=== PATIENT | female | born 1940 | race Caucasian/White ===

== ENCOUNTER 2021-05-18 16:27 | Outpatient (CLI) | payer MEDICARE, OTHER, SELFPAY ==
--- NOTE | ~2021-05-18 | US_ITS ---
US renal BI 05/18/2021 16:56 Procedure: Realtime transabdominal ultrasound of the kidneys and bladder. Indication: Chronic kidney disease stage IV Comparison: No prior studies for comparison. Findings: Renal echotexture is normal bilaterally without hydronephrosis, contour deforming mass or r enal calculus. The right kidney measures 8 cm and left kidney measures 7.9 cm. Bladder not well dist ended for evaluation of wall thickening. Impression: 1: Unremarkable renal ultrasound. No stones, masses or hydronephrosis. Reviewed, dictated and finalized at location A. Impression: 1: Unremarkable renal ultrasound. No stones, masses or hydronephrosis.
== END 2021-05-18 16:28 | disposition home or self-care (01) ==
PROVIDERS: PCP Emergency Medicine; Visit Provider Internal Medicine Nephrology
DX: I12.9 Hypertensive chronic kidney disease with stage 1 through stage 4 chronic kidney disease, or unspecified chronic kidney disease (principal); N18.4 Chronic kidney disease, stage 4 (severe)
CPT/HCPCS: 76775

== ENCOUNTER → 2022-07-26 14:54 | Outpatient (CLI) | payer MEDICARE, OTHER, SELFPAY ==
--- NOTE | ~2022-07-26 | MM_ITS ---
EXAMINATION: MM screening [facility] BI w [facility] HISTORY: Screening TECHNIQUE: Craniocaudal and mediolateral oblique 3-D tomosynthesis images were obtained and synthetic 2-D images were generated. CAD analysis was submitted and interpreted. COMPARISON: Comparison to multiple prior studies sequentially, with oldest reviewed study dated 06/11. BREAST PARENCHYMAL COMPOSITION: The breasts are almost entirely fatty. FINDINGS: There are benign breast calcifications. There is no evidence of suspicious mass, calcificat ion, or architectural distortion to suggest malignancy in either breast. There has been no suspicious interval change. IMPRESSION: 1. No mammographic evidence of malignancy. 2. Recommend routine screening mammography in one year. BI-RADS Category 2: Benign finding(s). Reviewed, dictated and finalized at location A. ARCH AND DEVELOPMENT MANAGER
--- NOTE | ~2022-07-26 | DEXA_ITS ---
Bone Density Report Name: KARIME KHAN Age: 82 Sex: Female Ethnicity: White Date of : 1940 Indication: osteopenia; height loss; hysterectomy;postmenopausal Referring Provider: JESUS ALBERTO MARTINEZ Study: Bone densitometry was performed. Exam Date: July 26, 2022 Accession number: [id number] Bone Density: Region BMD T-score Z-score Classification AP Spine (L1-L4) 1.234 1.7 4.5 Normal Femoral Neck (Left) 0.609 -2.2 0.2 Osteopenia Total Hip (Left) 0.765 -1.4 0.7 Osteopenia Femoral Neck (Right) 0.592 -2.3 0.1 Osteopenia Total Hip (Right) 0.761 -1.5 0.7 Osteopenia Total Hip Mean 0.763 -1.5 0.7 Osteopenia World Health Organization criteria for BMD impression classify patients as: Normal (T-score at or above -1.0), Osteopenia (T-score between -1.0 and -2.5), or Osteoporosis (T-score at or below -2.5). 10-year Fracture Risk(1): Major Osteoporotic Fracture 17% Hip Fracture 5.7% Reported Risk Factors: [place] (), Neck BMD=0.592, BMI=26.3 (1) FRAX(R) Version 3.08. Fracture probability calculated for an untreated patient. Fracture probability may be lower if the patient has received treatment. Previous Exams: Region Exam Age BMD T-score BMD Change BMD Change Date g/cm2 vs Baseline vs Previous AP Spine(L1-L4) 07/26/2022 82 1.234 1.7 0.108* 0.108* 07/07/2014 74 1.126 0.7 Total Hip(Left) 07/26/2022 82 0.765 -1.4 0.002 0.002 07/07/2014 74 0.763 -1.5 Total Hip(Right) 07/26/2022 82 0.761 -1.5 -0.064* -0.064* 07/07/2014 74 0.825 -1.0 *Denotes significance at 95% confidence level, LSC for AP Spine = 0.022 g/cm2, LSC for Total Hip = 0.027 g/cm2 Clinical Information Provided by Patient: Has used the following medications: Vitamin D, Calcium, MTV, ARMOUR THYROID Has the following medical conditions: Hysterectomy Patient maximum height was 64.0 Menopause Age: 43 No regular weight bearing exercise Drinks caffeinated beverages Onset of menses at age 12 Number of children 3 Impression: The patient has low bone mass, based on the Right Femoral Neck T-score. The patient has an estimated ten-year risk of hip fracture of 5.7% and an estimated ten-year risk of major fracture of 17%, based on the WHO FRAX algorithm. The BMD for the Total Hip(Right) decreased, changing by -0.064 since the last DXA exam. Discussion: BONE DENSITY IS LOW AT ONE OR MORE SKELETAL SITES
== END ==
PROVIDERS: PCP Emergency Medicine; Visit Provider Emergency Medicine
DX: Z12.31 Encounter for screening mammogram for malignant neoplasm of breast (principal); Z78.0 Asymptomatic menopausal state; M85.852 Other specified disorders of bone density and structure, left thigh; M85.851 Other specified disorders of bone density and structure, right thigh
CPT/HCPCS: 77063; 77067; 77080

== ENCOUNTER 2025-04-15 09:53 | Emergency (ER) | payer MEDICARE, SELFPAY ==
[2025-04-15 10:00] VITALS: BP 175/40; PULSE 51; RESP 20; TEMP 36.2; O2SAT 97
--- NOTE | 2025-04-15 10:18 | ED_ITS ---
HPI - Extremity Injury (Lower) General Chief Complaint: Extremity Injury, Lower Stated Complaint: LT Foot Toe Pain Time Seen by Provider: 04/15/25 09:55 Source: patient Mode of arrival: ambulatory Limitations: no limitations History of Present Illness HPI Narrative: Patient is an 84-year-old female who presents with left 2nd digit toe pain for 4-5 days. Patient has tried soaking foot and taking aspirin with no relief. Denies any fever, chills, nausea, vomiting, diarrhea. Related Data Allergies Allergy/AdvReac Type Severity Reaction Status Date / Time levothyroxine sodium AdvReac Severe BLOATING, Verified 04/15/25 10:19 NAUSEA Review of Systems Review of Systems: All systems reviewed & are unremarkable except as noted in HPI and below Constitutional: Constitutional: Denies body ache(s), Denies chills, Denies fatigue, Denies fever(s), Denies headache(s), Denies malaise and Denies weakness Eyes: Eyes: Denies blurry vision, Denies irritation and Denies loss of vision ENT: Denies otalgia, Denies headache(s), Denies nasal discharge, Denies sinus pain and Denies sore throat Cardiovascular: Cardiovascular: Denies chest pain, Denies irregular heart rhythm and Denies dyspnea Respiratory: Respiratory: Denies dyspnea Gastrointestinal: Gastrointestinal: Denies abdominal pain, Denies melena, Denies hematochezia, Denies diarrhea, Denies nausea and Denies vomiting Musculoskeletal: Musculoskeletal: Denies back pain, Denies myalgias, Reports arthralgias and Reports joint swelling Integumentary/Breasts: Skin/Breast: Denies pruritus, Reports erythema and Denies rash Neurologic: Denies headache(s), Denies loss of vision and Denies weakness Psychiatric: Psychiatric: Reports no additional psychiatric complaints Endocrine: Endocrine: Denies fatigue PMFSH Past Medical History Medical History Bradycardia Hyperlipidemia, unspecified Gastro-esophageal reflux disease without esophagitis CKD (chronic kidney disease) stage 3, GFR 30-59 ml/min Hypothyroidism (acquired) Hyperglycemia HTN (hypertension) Surgical History Surgical History H/O: hysterectomy History of appendectomy Family History Family History Father Patient's father is , Onset Age: 94 Mother No problems noted. 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 Gender identity (if verbalized by the patient): Female Comments At time of signature, agree with nursing past medical, surgical, social and family history. There is no relevant family history pertinent to the presenting complaint. Exam Const: General: cooperative, healthy appearing, comfortable, no acute distress and well nourished Nutritional Appearance: well nourished Orientation/consciousness: patient oriented x3 Limitations: no limitations HENMT: Head: normal to inspection, normocephalic and atraumatic Ears: hearing grossly normal bilaterally and external ears normal Face/Nose/Sinus: Normal external nose present, normal facial exam and face symmetric Face and sinus: normal facial exam and face symmetric Mouth: Yes lip normal Eyes: General: appearance normal, both eyes and all related structures Alignment and Position: alignment normal and position normal Periorbital: periorbital findings normal Eyelids: eyelids normal Pupils: Equal, round and reactive pupils present EOM: EOMs intact bilaterally Neck: Neck: normal visual inspection, full ROM and supple Chest: Chest palpation & inspection: normal inspection of the chest Resp: Effort & Inspection: normal respiratory effort and able to speak in complete sentences Auscultation: clear to auscultation bilaterally Cardio: Rate: regular rate Rhythm: regular rhythm Heart sounds: S1 normal heart sound present and S2 normal heart sound present GI: Inspection: normal to inspection Skin: General skin exam: normal color and no rashes or lesions noted Neuro: General: patient oriented x3 and moves all extremities Cranial nerves: Yes Equal, round and reactive pupils present Speech: normal speech Gait exam (Neuro): Normal gait present Extrem: General: normal to inspection, full ROM and no edema Left lower extremity: ankle Details: normal to inspection and normal ROM; no tenderness, no swelling and achilles tendon exam normal and foot Details: normal capillary refill, tenderness Location: of another digit Location: the 2nd digit and at the DIP joint, toes with normal ROM, warmth Location: of another digit Location: the 2nd digit and at the DIP joint (mild with erythema), vascular exam Details: dorsalis pedis pulse present and normal capillary refill and tendon exam active flexion normal; no ecchymosis Psych: Appearance: grossly normal and well kempt Mental Status: mental status grossly normal Speech and movement: Normal speech and movement present Affect: normal affect Attitude: cooperative Thought process: Normal thought process present Course Course Emergency Course: Patient is aware of diagnosis, understands and agrees to treatment plan. Anticipatory guidance given. Patient agrees to follow-up as directed and is aware of reasons to seek care at the emergency department. Portions of this record may have been created with voice recognition software Level of Care: Express Care Visit Vital Signs Vital signs: Vital Signs Temperature 36.2 C L 04/15/25 10:00 Pulse Rate 51 L 04/15/25 10:00 Respiratory Rate 20 04/15/25 10:00 Blood Pressure 175/40 H 04/15/25 10:00 Pulse Oximetry 97 04/15/25 10:00 Oxygen Delivery Room Air 04/15/25 10:00 Temperature 36.2 C L 04/15/25 10:00 Pulse Rate 51 L 04/15/25 10:00 Respiratory Rate 20 04/15/25 10:00 Blood Pressure 138/43 L 04/15/25 10:40 Pulse Oximetry 97 04/15/25 10:00 Oxygen Delivery Room Air 04/15/25 10:00 Reviewed MDM - Extremity Injury (Lower) MDM Narrative Medical decision making narrative: Patient has a history of gout and denies any diet changes. Based on exam point tenderness on 2nd DIP joint on left toe will treat for gout and also cover with antibiotics as it could be cellulitis Pt well hydrated appearing, in no respiratory distress, hemodynamically stable. Recommend supportive care. The patient is stable at time of discharge the clinical impression was discussed and the patient was given the opportunity to ask questions, which were addressed as completely as possible given the information available at present. Anticipatory guidance and return to care precautions were discussed and the importance of primary care follow-up was stressed and encouraged. The patient voiced understanding of the plan, indications to return, and the need for follow-up. Exam findings show no acute concerns or changes Patient is appropriate for outpatient treatment and follow-up. Differential Diagnosis Differential diagnosis: Likely other (Gout, cellulitis, arthritis) Medical Records Attestation: I reviewed the patient's medical records. Discharge Plan Discharge Clinical Impression: Erythema of toe Pain in toe Qualifiers: Laterality: left Qualified Code(s): M79.675 - Pain in left toe(s) Patient Disposition: Home Condition: Stable Instructions: Cellulitis (ED), Gout (ED) Additional Instructions: Take colchicine 1.2 and then 0.6 mg an hour later. Take indomethacin 3 times a day for 7 days Take antibiotics as prescribed Minimize activities that aggravate the condition The RICE protocol. Follow the RICE protocol as soon as possible after your injury: Rest your ankle by not walking on it. Ice should be immediately applied to keep the swelling down. It can be used for 20 to 30 minutes, three or four times daily. Do not apply ice directly to your skin. Compression dressings, bandages or doreen-wraps will immobilize and support your injured ankle. Elevate your ankle above the level of your heart as often as possible during the first 48 hours. Please schedule a follow-up visit with your personal physician for further evaluation and treatment within 1week OR If your symptoms persist, change or worsen significantly before you can contact your personal physician then please, without delay, go to the emergency department for further evaluation. Patient Language: Slovak Prescriptions: New cephalexin 500 mg capsule 500 mg PO QID 7 Days Qty: 28 0RF indomethacin 50 mg capsule 50 mg PO TID 7 Days Qty: 21 0RF Rx Instructions: administer with food or milk colchicine 0.6 mg capsule 0.6 mg PO DAILY Qty: 3 0RF Rx Instructions: Take two capsules initially and then one tablet an hour later No Action triamcinolone acetonide 0.1 % ointment See Rx Instructions .ROUTE .COMPLEX Qty: 80 0RF Rx Instructions: Apply a thin layer to eyelids once daily for 7 days; alendronate 70 mg tablet See Rx Instructions .ROUTE .COMPLEX Qty: 12 3RF Dose Instruction: TAKE 1 TABLET WEEKLY Rx Instructions: TAKE 1 TABLET WEEKLY thyroid (pork) [CREDIT DEPARTMENT MANAGER Thyroid] 90 mg tablet 90 mg PO DAILY Qty: 90 2RF atorvastatin 10 mg tablet See Rx Instructions .ROUTE .COMPLEX Qty: 90 3RF Dose Instruction: TAKE 1 TABLET DAILY Rx Instructions: TAKE 1 TABLET DAILY spironolactone 50 mg tablet See Rx Instructions .ROUTE .COMPLEX Qty: 90 3RF Dose Instruction: TAKE 1 TABLET DAILY Rx Instructions: TAKE 1 TABLET DAILY atenolol-chlorthalidone 50-25 mg tablet See Rx Instructions .ROUTE .COMPLEX Qty: 90 3RF Dose Instruction: TAKE 1 TABLET DAILY Rx Instructions: TAKE 1 TABLET DAILY Follow-up/Referrals: Babatunde Robin MD [Primary Care Provider] - 3 Days Time of Disposition: 10:33
--- OUTSIDE RECORDS SUMMARY | 2025-04-15 10:21 | XMS_ITS | Clinical Summary ---
Author Organization [facility] Address [address] [address] Phone Care Team Providers Care Chemical Treatment Plant Technician Name Role Phone Babatunde Robin MD Primary Care Provider [phone] Allergies Active Allergy Reactions Criticality Noted Date Comments Levothyroxine nausea 04/27/2021 Medications atenolol-chlort halidone (TENORETIC) 100-25 MG per tablet atenolol 100 mg-chlorthalidone 25 mg tablet Active atorvastatin (LIPITOR) 10 MG tablet 04/17/20 21 Active cyclobenzaprine (FLEXERIL) 5 MG tablet cyclobenzaprine 5 mg tablet Active HYDROcodone-doreen taminophen (NORCO) 5-325 MG per tablet hydrocodone 5 mg-acetaminophen 325 mg tablet Active ondansetron ODT (ZOFRAN-ODT) 4 MG dispersible tablet ondansetron 4 mg disintegrating tablet Active pantoprazole (PROTONIX) 40 MG EC tablet 04/17/20 21 Active spironolactone (ALDACTONE) 50 MG tablet 04/17/20 21 Active [place] Thyroid 90 MG tablet 04/17/20 21 Active triamcinolone (KENALOG) 0.1 % ointment APPLY A THIN LAYER TO EYELIDS ONCE DAILY FOR 7 DAYS. 02/09/20 21 Active Active Problems Problem Noted Date Diagnosed Date Disorder of thyroid gland 04/27/2021 Sprain of foot 07/16/2019 Sprain of right ankle 07/16/2019 Ankle pain 07/01/2019 Closed fracture of calcaneus 07/01/2019 Contusion of right foot 07/01/2019 Immunizations Immunization Administration Dates Next Due Sars-cov-2, Unspecified 12/21/2020 Family History Medical History Relation Comments Chronic kidney disease Neg Hx Nephrolithiasis Neg Hx Social History Tobacco Use Types Packs/Day Years Used Date Smoking Tobacco: Never Smokeless Tobacco: Never Alcohol Use Standard Drinks/Week Comments Yes 0 (1 standard drink = 0.6 oz pur e alcohol) Comments Unknown Sex and Gender Information Value Date Recorded Sex Assigned at Not on file Legal Sex Female 9:31 AM MDT Gender Identity Not on file Sexual Orientation Not on file Last Filed Vital Signs Vital Sign Reading Time Taken Comments Blood Pressure 134/76 05/03/2022 12:00 PM CDT Pulse - - Temperature 36.1 C (96.9 F) 05/03/2022 12:00 PM CDT Respiratory Rate 18 05/03/2022 12:00 PM CDT Oxygen Saturation - - Inhaled Oxygen Concentration - - Weight 68.5 kg (151 lb) 05/03/2022 12:00 PM CDT Height 162.6 cm (5' 4) 05/03/2022 12:00 PM CDT Body Mass Index 25.92 05/03/2022 12:00 PM CDT Plan of Treatment Health Maintenance Due Date Last Done Comments Pneumococcal PPSV23/PCV13 65 + Years / Low and Medium Risk (1 of 2 - PCV) 1990 Influenza Vaccine (#1) 2025 Insurance MEDICARE [employer] MEDICARE SUPPLEMENT Care Teams Chemical Treatment Plant Technician Relationship Specialty Start Date End Date Babatunde Robin MD [address] [id number] PCP - General Internal Medicine 02/09/21
[2025-04-15 10:40] VITALS: BP 138/43
== END 2025-04-15 10:40 | disposition home or self-care (01) ==
PROVIDERS: Emergency Provider Nurse Practitioner Family; PCP Emergency Medicine
DX: L53.9 Erythematous condition, unspecified (principal); M79.675 Pain in left toe(s); Z87.891 Personal history of nicotine dependence; I12.9 Hypertensive chronic kidney disease with stage 1 through stage 4 chronic kidney disease, or unspecified chronic kidney disease; N18.30 Chronic kidney disease, stage 3 unspecified; E78.5 Hyperlipidemia, unspecified; E03.9 Hypothyroidism, unspecified; K21.9 Gastro-esophageal reflux disease without esophagitis
CPT/HCPCS: 99213; G0463